=== PATIENT | female | born 1985 | race African-American/Black ===

== ENCOUNTER 2018-01-21 23:53 | Emergency (ER) | payer MEDICAID ==
[~2018-01-21] VITALS: Ht 157.5 cm; Wt 85.0 kg
[2018-01-21 23:56] VITALS: BP 131/63; PULSE 74; RESP 28; TEMP 98.1; O2SAT 100
[2018-01-22 00:18] VITALS: BP 147/78; PULSE 88; RESP 22; O2SAT 100
[2018-01-22 00:19] VITALS: O2SAT 100
--- NOTE | 2018-01-22 00:21 | PD ---
HPI Chief Complaint: Chest Pain Time Seen by Provider: 00:17 Travel History International Travel<30 days: No Contact w/Intl Traveler<30days: No Traveled to known affect area: No History of Present Illness HPI 32-year-old female patient from [place] with previous history of chest wall pains , presents to the ER today for which she feels like is a left-sided 9 out of 10 spasming left-sided chest wall pain that hurts with movements of her arm and taking deep breaths. She denies any shortness of breath, coughing, fevers, or other symptoms. She states it started on its own today. She denies any leg swelling or leg pains. Modifying Factors: Worse with movement Associated Signs & Symptoms: Left-sided chest wall pain Risk Factors: Previous history of chest wall pain PFSH Past Medical History Asthma: Yes Diminished Hearing: No Medical other: Yes (sickle cell- clot 8 years ago ) Sickle Cell Disease: Yes Tetanus Vaccination: Unknown Influenza Vaccination: No ?: Not LMP: IUD : 6 Para: 4 Miscarriage: 1 : 1 Tubal Ligation: Yes Past Surgical History Section: Yes (4) Social History Alcohol Use: No Tobacco Use: No Substance Use: No Allergies-Medications (Allergen,Severity, Reaction): Coded Allergies: Sulfa (Sulfonamide Antibiotics) (Verified Allergy, Unknown, 01/21/18) Review of Systems Except as stated in HPI: all other systems reviewed are Neg Physical Exam Narrative GENERAL: Well-developed young -[place] female patient currently in mild distress. Awake and oriented 3. SKIN: Focused skin assessment warm/dry. HEAD: Atraumatic. Normocephalic. EYES: Pupils equal and round. No scleral icterus. No injection or drainage. ENT: No nasal bleeding or discharge. Mucous membranes pink and moist. NECK: Trachea midline. No JVD. CARDIOVASCULAR: Regular rate and rhythm. No murmur appreciated. CHEST: Tender to palpation in the left chest wall in the left parasternal area without deformity or crepitance. No retractions or use of accessory muscles. RESPIRATORY: No accessory muscle use. Clear to auscultation. Breath sounds equal bilaterally. GASTROINTESTINAL: Abdomen soft, non-tender, nondistended. Hepatic and splenic margins not palpable. MUSCULOSKELETAL: No obvious deformities. No clubbing. No cyanosis. No edema. NEUROLOGICAL: Awake and alert. No obvious cranial nerve deficits. Motor grossly within normal limits. Normal speech. PSYCHIATRIC: Appropriate mood and affect; insight and judgment normal. Data Data Last Documented VS Vital Signs Date Time Temp Pulse Resp B/P (MAP) Pulse Ox O2 Delivery O2 Flow Rate FiO2 01/22/18 00:19 100 Room Air 01/22/18:18 88 22 01/21/18 23:56 98.1 Orders Orders Electrocardiogram (01/22/18:17) Ckmb (Isoenzyme) Profile (01/22/18:17) Complete Blood Count With Diff (01/22/18:17) Comprehensive Metabolic Panel (01/22/18:) D-Dimer (01/22/18:) Magnesium (Mg) (01/22/18:) Prothrombin Time / Inr (Pt) (01/22/18:) Act Partial Throm Time (Ptt) (01/22/18:) Troponin I (01/22/18:) Lipase (01/22/18:17) Ecg Monitoring (01/22/18:17) Bilateral Bp Monitoring (01/22/18:17) Iv Access Insert/Monitor (01/22/18:) Oximetry (01/22/18:17) Oxygen Administration (01/22/18:17) Sodium Chloride 0.9% Flush (Ns Flush) (01/22/18 00:30) Sodium Chlorid 0.9% 500 Ml Inj (Ns 500 M (01/22/18 00:30) Chest, Pa & Lat (01/22/18:17) Ed Urine Pregnancytest Poc (01/22/18:17) Cyclobenzaprine (Flexeril) (01/22/18 00:30) Morphine Inj (Morphine Inj) (01/22/18 01:00) CKMB (01/22/18 00:25) CKMB% (01/22/18 00:25) Ed Discharge Order (01/22/18 01:57) Labs Laboratory Tests Test 01/22/18 00:25 White Blood Count 11.4 TH/MM3 Red Blood Count 4.63 MIL/MM3 Hemoglobin 12.8 GM/DL Hematocrit 38.3 % Mean Corpuscular Volume 82.8 FL Mean Corpuscular Hemoglobin 27.6 PG Mean Corpuscular Hemoglobin Concent 33.3 % Red Cell Distribution Width 14.0 % Platelet Count 295 TH/MM3 Mean Platelet Volume 7.9 FL Neutrophils (%) (Auto) 51.0 % Lymphocytes (%) (Auto) 42.9 % Monocytes (%) (Auto) 4.5 % Eosinophils (%) (Auto) 1.1 % Basophils (%) (Auto) 0.5 % Neutrophils # (Auto) 5.8 TH/MM3 Lymphocytes # (Auto) 4.9 TH/MM3 Monocytes # (Auto) 0.5 TH/MM3 Eosinophils # (Auto) 0.1 TH/MM3 Basophils # (Auto) 0.1 TH/MM3 CBC Comment DIFF FINAL Differential Comment Prothrombin Time 10.1 SEC Prothromb Time International Ratio 1.0 RATIO Activated Partial Thromboplast Time 27.1 SEC D-Dimer Quantitative (PE/DVT) 0.49 MG/L FEU Blood Urea Nitrogen 13 MG/DL Creatinine 0.94 MG/DL Random Glucose 90 MG/DL Total Protein 7.6 GM/DL Albumin 3.5 GM/DL Calcium Level 8.5 MG/DL Magnesium Level 2.0 MG/DL Alkaline Phosphatase 86 U/L Aspartate Amino Transf (AST/SGOT) 19 U/L Alanine Aminotransferase (ALT/SGPT) 21 U/L Total Bilirubin 0.2 MG/DL Sodium Level 142 MEQ/L Potassium Level 3.6 MEQ/L Chloride Level 104 MEQ/L Carbon Dioxide Level 26.8 MEQ/L Anion Gap 11 MEQ/L Estimat Glomerular Filtration Rate 69 ML/MIN Total Creatine Kinase 182 U/L Creatine Kinase MB 1.1 NG/ML Troponin I LESS THAN 0.02 NG/ML Lipase 98 U/L [facility] Medical Decision Making Medical Screen Exam Complete: Yes Emergency Medical Condition: Yes Medical Record Reviewed: Yes Interpretation(s) EKG shows NSR, no ST elevation or depression, and no arrhythmias. No significant T-wave inversions. Laboratory Tests Test 01/22/18 00:25 White Blood Count 11.4 TH/MM3 (4.0-11.0) Lymphocytes # (Auto) 4.9 TH/MM3 (1.0-4.8) Estimat Glomerular Filtration Rate 69 ML/MIN (>89) Troponin I LESS THAN 0.02 NG/ML Last 24 hours Impressions Chest X-Ray 01/22/18 0017 Signed Impressions: CONCLUSION: No acute cardiopulmonary process. Differential Diagnosis Atypical chest pain: Costochondritis versus pleurisy versus acute pulmonary processes versus ACS Narrative Course EKG did not show any signs of acute ST changes. Cardiac enzymes and lab work was fairly unremarkable. The left-sided chest pain is fairly reproducible on palpation and patient has had history of chest wall pains in the past. D-dimer is negative. At this point, symptoms are more indicative of an atypical costochondritis or chest wall pain. I have discussed the finding with the patient and I have offered to admit her as a patient in the chest pain center for further evaluation versus close outpatient follow-up with cardiology for chest pain. She states that she lives in [place] and is her anniversary, would rather follow-up as an outpatient. She will be released. She will return for worsening in symptoms as necessary. Diagnosis Primary Impression: Atypical chest pain Disposition: 01 DISCHARGE HOME Condition: Stable Adair Woods MD Jan 22, 2018 00:21
[2018-01-22] MEDS ORDERED: SODIUM CHLORID 0.9% 500 ML INJ 500 ML IV ONE (00:30)
[2018-01-22] MEDS ORDERED: CYCLOBENZAPRINE HCL 10 MG TAB PO ONE (00:30)
[2018-01-22] MEDS ORDERED: SODIUM CHLORIDE 0.9% FLUSH 10 ML FLUSH IVF PRN (00:30)
[2018-01-22 00:41] LABS: AUTOMATED NEUTROPHIL # 5.8 TH/MM3 (1.8-7.7); BASOPHIL # 0.1 TH/MM3 (0-0.2); BASOPHIL % 0.5 % (0.0-2.0); EOSINOPHIL # 0.1 TH/MM3 (0-0.4); EOSINOPHIL % 1.1 % (0.0-4.0); HEMATOCRIT 38.3 % (35.0-46.0); HEMOGLOBIN 12.8 GM/DL (11.6-15.3); LYMPH % 42.9 % (9.0-44.0); LYMPHOCYTE # 4.9 TH/MM3 (1.0-4.8); MEAN CELL VOLUME 82.8 FL (80.0-100.0); MEAN CORPUSCULAR HEMOGLOBIN 27.6 PG (27.0-34.0); MEAN CORPUSCULAR HGB CONC 33.3 % (32.0-36.0); MEAN PLATELET VOLUME 7.9 FL (7.0-11.0); MONO % 4.5 % (0.0-8.0); MONOCYTE # 0.5 TH/MM3 (0-0.9); PLATELET COUNT 295 TH/MM3 (150-450); RED BLOOD COUNT 4.63 MIL/MM3 (4.00-5.30); WHITE BLOOD COUNT 11.4 TH/MM3 (4.0-11.0)
[2018-01-22 00:58] LABS: D-DIMER 0.49 MG/L FEU (0.00-0.50); PROTHROMBIN TIME - PATIENT 10.1 SEC (9.8-11.6)
[2018-01-22] MEDS ORDERED: MORPHINE SULFATE 4 MG/ML INJ IV PUSH ONE (01:00)
[2018-01-22 01:12] LABS: ALBUMIN 3.5 GM/DL (3.4-5.0); ALT (GPT) 21 U/L (10-53); AST (GOT) 19 U/L (15-37); BICARBONATE 26.8 MEQ/L (21.0-32.0); BLOOD UREA NITROGEN 13 MG/DL (7-18); CALCIUM 8.5 MG/DL (8.5-10.1); CHLORIDE 104 MEQ/L (98-107); CREATININE 0.94 MG/DL (0.50-1.00); GLOMERULAR FILTRATION RATE 69 ML/MIN (>89); GLUCOSE,RANDOM 90 MG/DL (74-106); SODIUM (NA) 142 MEQ/L (136-145)
--- NOTE | 2018-01-22 01:13 | RADRPT ---
EXAM DATE: 01/22/2018 12:53 AM EDT AGE/SEX: 32 years / Female INDICATIONS: Severe left sided chest pain. CLINICAL DATA: This is the patient's initial encounter. Patient reports that signs and symptoms have been present for 1 day and indicates a pain score of 10/10. MEDICAL/SURGICAL HISTORY: Angina. None. COMPARISON: No prior [facility] exams available for comparison. FINDINGS: PA and lateral views of the chest demonstrate the lungs to be symmetrically aerated without evidence of mass, infiltrate or effusion. The cardiomediastinal contours are unremarkable. Osseous structures are intact. CONCLUSION: No acute cardiopulmonary process. Electronically signed by: Deshawn Hanna MD 01/22/2018 1:12 AM EDT
[2018-01-22 01:17] LABS: ALKALINE PHOSPHATASE 86 U/L (45-117); TOTAL BILIRUBIN ADULT 0.2 MG/DL (0.2-1.0); TOTAL PROTEIN 7.6 GM/DL (6.4-8.2); TROPONIN I LESS THAN 0.02 NG/ML (0.02-0.05)
--- NOTE | 2018-01-23 08:48 | EKG ---
Date Performed: 01/21/2018 Time Performed: 23:55:12 PTAGE: 32 years EKG: Sinus rhythm NORMAL ECG NO PREVIOUS TRACING DOCTOR: Elliot Douglas Interpretating Date/Time 01/23/2018 08:46:21
== END 2018-01-22 02:15 | disposition home or self-care (01) ==
LOC: NEPE 23:53
DX: R07.89 Other chest pain (principal); J45.909 Unspecified asthma, uncomplicated; D57.1 Sickle-cell disease without crisis; Z88.2 Allergy status to sulfonamides
CPT/HCPCS: 71046; 80053; 82550; 82552; 83690; 83735; 84484; 84703; 85025; 85379; 85610; 85730; 93005; 96361; 96374; 99285; J2270; J7040